=== PATIENT | male | born 1995 ===

== ENCOUNTER 2020-11-18 08:10 | Emergency (ER) | payer SELFPAY ==
[2020-11-18] MEDS ORDERED: LORazepam 2 MG/ML SDV IVPUSH ONE ×2 (08:26→12:12)
[2020-11-18] MEDS ORDERED: Thiamine 100 MG Tab PO ONE (08:27)
[2020-11-18] MEDS ORDERED: Sodium Chloride 0.9% 1,000 ML IV ONE (08:27)
[2020-11-18] MEDS ORDERED: Folic Acid 1 MG Tab PO ONE (08:28)
--- NOTE | 2020-11-18 08:33 | EDM.PDOC ---
ED HPI GENERAL MEDICAL PROBLEM - General Chief Complaint: Drug or Alcohol Abuse Stated Complaint: KEVIN,ETOH Time Seen by Provider: 11/18/20 08:33 Source of Information: Reports: Patient History Limitations: Reports: Altered Mental Status, Intoxication - History of Present Illness INITIAL COMMENTS - FREE TEXT/NARRATIVE: Edwar, 25-year-old male, presents being shaky. His home base is [place] making his way through the area. Was in a motel in [facility] where he awoke this morning feeling extremely shaky, acknowledging significant alcohol intake long-term but "a couple bottles a day" the past week. As he is not familiar with the area he presented to the desk at the motel and requested an ambulance. Had an incident of fall striking his head face, unsure as to what took place but does not think he was unconscious but is unsure. This did occur during any alcohol intake. Feels he is overall in good health other than this event and the issues leading up to it. He is uncertain as to what day it is knowing that he is in [place]. Planning to return to [place] as he was in [facility]. He stopped in [facility] a few days ago and unfortunately had a drink which led to more drinking than staying in a motel. He then realized he needed to get going and for what ever reason ended up in [facility] where he again stopped in a bar started drinking and was advised not to drive. He then spent the night in the motel there and awoke this morning questioning his health. Onset: Today Onset Date: 11/18/20 Onset Time: 07:30 Duration: Hour(s):, Getting Worse Location: Reports: Generalized Quality: Reports: Other (shakes) head Pain Score (Numeric/FACES): 5 - Related Data Allergies Allergy/AdvReac Type Severity Reaction Status Date / Time No Known Allergies Allergy Verified 11/18/20 08:54 Past Medical History HEENT History: Reports: None Cardiovascular History: Reports: None Respiratory History: Reports: None Gastrointestinal History: Reports: None Genitourinary History: Reports: None Musculoskeletal History: Reports: Fracture Neurological History: Reports: None Psychiatric History: Reports: Addiction Other Psychiatric History: Previous self admission into treatment facility for addiction, alcohol predominantly with THC Endocrine/Metabolic History: Reports: None Hematologic History: Reports: None Oncologic (Cancer) History: Reports: None Dermatologic History: Reports: None - Infectious Disease History Infectious Disease History: Reports: None - Past Surgical History Other Musculoskeletal Surgeries/Procedures:: Open reduction internal fixation right radius ulna Social & Family History - Family History Family Medical History: No Pertinent Family History ED ROS GENERAL - Review of Systems Review Of Systems: Comprehensive ROS is negative, except as noted in HPI. ED EXAM, GENERAL - Physical Exam Exam: See Below Free Text/Narrative:: Alert, oriented to surroundings but is unaware of his location which is understandable. Very strong odor of old alcohol to his body. HEENT is showing an abrasion to the right zygomatic arch and lateral with faint bruising there is dried blood in the right nare. PERRLA no icterus no injection he has mild nystagmus that I would attribute to his alcohol. There is no icterus no injection. There is no trapping to eye motion. Tenderness to the zygomatic arch is noted on the right. Neck is soft supple with no lymphadenopathy no rigidity no tenderness to the spinal process. There is no JVD, there is no bruit auscultated. Thorax is overall clear with no wheezes no crackles. Cardiac is S1 is 2 mildly tachycardic with no appreciated murmur nor ectopic beat. Abdomen is soft he has mild nausea but no tenderness to palpation. There is no flank pain There is no edema to the periphery with no tenderness to the extremities. Course - Vital Signs Last Recorded V/S: Last Vital Signs Temp 97.7 F 11/18/20 08:44 Pulse 102 H 11/18/20 08:44 Resp 14 11/18/20 08:44 BP 163/102 H 11/18/20 08:44 Pulse Ox 98 11/18/20 08:44 - Orders/Labs/Meds Labs: Laboratory Tests 11/18/20 11/18/20 11/18/20 Range/Units 08:45 08:45 08:45 WBC 7.24 (5.00-10.00) 10^3/uL RBC 4.74 (4.50-6.00) 10^6/uL Hgb 14.3 (13.0-17.0) g/dL Hct 43.0 (40.0-52.0) % MCV 90.7 (82.0-92.0) fL MCH 30.2 (27.0-31.0) pg MCHC 33.3 (32.0-36.0) g/dL RDW 14.1 (11.5-14.5) % Plt Count 236 (150-400) 10^3/uL MPV 9.6 (7.4-10.4) fL Immature Gran % (Auto) 0.7 (0.0-5.0) % Neut % (Auto) 54.7 (50.0-70.0) % Lymph % (Auto) 33.8 (20.0-40.0) % [place] % (Auto) 8.7 H (2.0-8.0) % Eos % (Auto) 1.8 (1.0-3.0) % Baso % (Auto) 0.3 (0.0-1.0) % Neut # (Auto) 3.96 (2.50-7.00) 10^3/uL Lymph # (Auto) 2.45 (1.00-4.00) 10^3/uL [place] # (Auto) 0.63 (0.10-0.80) 10^3/uL Eos # (Auto) 0.13 (0.10-0.30) 10^3/uL Baso # (Auto) 0.02 (0.00-0.10) 10^3/uL Immature Gran # (Auto) 0.05 (0.00-0.50) 10^3/uL APTT (22.8-31.4) SEC Sodium 137 (136-145) mmol/L Potassium 4.2 (3.5-5.1) mmol/L Chloride 99 (98-107) mmol/L Carbon Dioxide 28.8 (21.0-32.0) mmol/L Anion Gap 13.4 (5-15) mmol/L BUN 21 H (7-18) mg/dL Creatinine 0.80 (0.51-1.17) mg/dL Est Cr Clr Drug Dosing 143.21 mL/min Estimated GFR (MDRD) > 60 mL/min Glucose 94 (70-140) mg/dL Lactic Acid 1.9 (0.4-2.0) mmol/L Calcium 8.6 L (8.7-10.3) mg/dL Total Bilirubin 0.2 (0.2-1.0) mg/dL AST 35 (15-37) U/L ALT 99 H (14-63) U/L Alkaline Phosphatase 80 (46-116) U/L Total Protein 7.8 (6.4-8.2) g/dL Albumin 3.46 (3.40-5.00) g/dL Amylase (25-125) U/L Lipase (73-393) U/L Specimen Type Urine Color (YELLOW) Urine Appearance (CLEAR) Urine pH (5.0-9.0) Ur Specific [place] (1.005-1.030) Urine Protein (NEGATIVE) mg/dL Urine Glucose (UA) (NEGATIVE) mg/dL Urine Ketones (NEGATIVE) mg/dL Urine Occult Blood (NEGATIVE) Urine Nitrite (NEGATIVE) Urine Bilirubin (NEGATIVE) Urine Urobilinogen (0.2-1.0) E.U./dL Ur Leukocyte Esterase (NEGATIVE) Urine RBC (0-5) /HPF Urine WBC (0-5) /HPF Ur Epithelial Cells /LPF Amorphous Sediment (0/HPF) /HPF Urine Bacteria (NONE TO FEW) /HPF Urine Opiates Screen (NEGATIVE) Ur Oxycodone Screen (NEGATIVE) Urine Methadone Screen (NEGATIVE) Ur Propoxyphene Screen (NEGATIVE) Ur Barbiturates Screen (NEGATIVE) Ur Tricyclics Screen (NEGATIVE) Ur Phencyclidine Scrn (NEGATIVE) Ur Amphetamine Screen (NEGATIVE) U Methamphetamines Scrn (NEGATIVE) U Benzodiazepines Scrn (NEGATIVE) U Cocaine Metab Screen (NEGATIVE) U Marijuana (THC) Screen (NEGATIVE) Ethyl Alcohol 163 H* (NOT DETECTED) mg/dL 11/18/20 11/18/20 11/18/20 Range/Units 08:45 08:45 08:45 WBC (5.00-10.00) 10^3/uL RBC (4.50-6.00) 10^6/uL Hgb (13.0-17.0) g/dL Hct (40.0-52.0) % MCV (82.0-92.0) fL MCH (27.0-31.0) pg MCHC (32.0-36.0) g/dL RDW (11.5-14.5) % Plt Count (150-400) 10^3/uL MPV (7.4-10.4) fL Immature Gran % (Auto) (0.0-5.0) % Neut % (Auto) (50.0-70.0) % Lymph % (Auto) (20.0-40.0) % [place] % (Auto) (2.0-8.0) % Eos % (Auto) (1.0-3.0) % Baso % (Auto) (0.0-1.0) % Neut # (Auto) (2.50-7.00) 10^3/uL Lymph # (Auto) (1.00-4.00) 10^3/uL [place] # (Auto) (0.10-0.80) 10^3/uL Eos # (Auto) (0.10-0.30) 10^3/uL Baso # (Auto) (0.00-0.10) 10^3/uL Immature Gran # (Auto) (0.00-0.50) 10^3/uL APTT 25.0 (22.8-31.4) SEC Sodium (136-145) mmol/L Potassium (3.5-5.1) mmol/L Chloride (98-107) mmol/L Carbon Dioxide (21.0-32.0) mmol/L Anion Gap (5-15) mmol/L BUN (7-18) mg/dL Creatinine (0.51-1.17) mg/dL Est Cr Clr Drug Dosing mL/min Estimated GFR (MDRD) mL/min Glucose (70-140) mg/dL Lactic Acid (0.4-2.0) mmol/L Calcium (8.7-10.3) mg/dL Total Bilirubin (0.2-1.0) mg/dL AST (15-37) U/L ALT (14-63) U/L Alkaline Phosphatase (46-116) U/L Total Protein (6.4-8.2) g/dL Albumin (3.40-5.00) g/dL Amylase 63 (25-125) U/L Lipase 149 (73-393) U/L Specimen Type Urinmid Urine Color Yellow (YELLOW) Urine Appearance Clear (CLEAR) Urine pH 7.0 (5.0-9.0) Ur Specific [place] 1.020 (1.005-1.030) Urine Protein Negative (NEGATIVE) mg/dL Urine Glucose (UA) Negative (NEGATIVE) mg/dL Urine Ketones Negative (NEGATIVE) mg/dL Urine Occult Blood Negative (NEGATIVE) Urine Nitrite Negative (NEGATIVE) Urine Bilirubin Negative (NEGATIVE) Urine Urobilinogen 0.2 (0.2-1.0) E.U./dL Ur Leukocyte Esterase Negative (NEGATIVE) Urine RBC 0-5 (0-5) /HPF Urine WBC 0-5 (0-5) /HPF Ur Epithelial Cells Few /LPF Amorphous Sediment Few (0/HPF) /HPF Urine Bacteria Few (NONE TO FEW) /HPF Urine Opiates Screen (NEGATIVE) Ur Oxycodone Screen (NEGATIVE) Urine Methadone Screen (NEGATIVE) Ur Propoxyphene Screen (NEGATIVE) Ur Barbiturates Screen (NEGATIVE) Ur Tricyclics Screen (NEGATIVE) Ur Phencyclidine Scrn (NEGATIVE) Ur Amphetamine Screen (NEGATIVE) U Methamphetamines Scrn (NEGATIVE) U Benzodiazepines Scrn (NEGATIVE) U Cocaine Metab Screen (NEGATIVE) U Marijuana (THC) Screen (NEGATIVE) Ethyl Alcohol (NOT DETECTED) mg/dL 11/18/20 Range/Units 08:45 WBC (5.00-10.00) 10^3/uL RBC (4.50-6.00) 10^6/uL Hgb (13.0-17.0) g/dL Hct (40.0-52.0) % MCV (82.0-92.0) fL MCH (27.0-31.0) pg MCHC (32.0-36.0) g/dL RDW (11.5-14.5) % Plt Count (150-400) 10^3/uL MPV (7.4-10.4) fL Immature Gran % (Auto) (0.0-5.0) % Neut % (Auto) (50.0-70.0) % Lymph % (Auto) (20.0-40.0) % [place] % (Auto) (2.0-8.0) % Eos % (Auto) (1.0-3.0) % Baso % (Auto) (0.0-1.0) % Neut # (Auto) (2.50-7.00) 10^3/uL Lymph # (Auto) (1.00-4.00) 10^3/uL [place] # (Auto) (0.10-0.80) 10^3/uL Eos # (Auto) (0.10-0.30) 10^3/uL Baso # (Auto) (0.00-0.10) 10^3/uL Immature Gran # (Auto) (0.00-0.50) 10^3/uL APTT (22.8-31.4) SEC Sodium (136-145) mmol/L Potassium (3.5-5.1) mmol/L Chloride (98-107) mmol/L Carbon Dioxide (21.0-32.0) mmol/L Anion Gap (5-15) mmol/L BUN (7-18) mg/dL Creatinine (0.51-1.17) mg/dL Est Cr Clr Drug Dosing mL/min Estimated GFR (MDRD) mL/min Glucose (70-140) mg/dL Lactic Acid (0.4-2.0) mmol/L Calcium (8.7-10.3) mg/dL Total Bilirubin (0.2-1.0) mg/dL AST (15-37) U/L ALT (14-63) U/L Alkaline Phosphatase (46-116) U/L Total Protein (6.4-8.2) g/dL Albumin (3.40-5.00) g/dL Amylase (25-125) U/L Lipase (73-393) U/L Specimen Type Urine Color (YELLOW) Urine Appearance (CLEAR) Urine pH (5.0-9.0) Ur Specific [place] (1.005-1.030) Urine Protein (NEGATIVE) mg/dL Urine Glucose (UA) (NEGATIVE) mg/dL Urine Ketones (NEGATIVE) mg/dL Urine Occult Blood (NEGATIVE) Urine Nitrite (NEGATIVE) Urine Bilirubin (NEGATIVE) Urine Urobilinogen (0.2-1.0) E.U./dL Ur Leukocyte Esterase (NEGATIVE) Urine RBC (0-5) /HPF Urine WBC (0-5) /HPF Ur Epithelial Cells /LPF Amorphous Sediment (0/HPF) /HPF Urine Bacteria (NONE TO FEW) /HPF Urine Opiates Screen Negative (NEGATIVE) Ur Oxycodone Screen Negative (NEGATIVE) Urine Methadone Screen Negative (NEGATIVE) Ur Propoxyphene Screen Negative (NEGATIVE) Ur Barbiturates Screen Positive H (NEGATIVE) Ur Tricyclics Screen Negative (NEGATIVE) Ur Phencyclidine Scrn Negative (NEGATIVE) Ur Amphetamine Screen Negative (NEGATIVE) U Methamphetamines Scrn Negative (NEGATIVE) U Benzodiazepines Scrn Positive H (NEGATIVE) U Cocaine Metab Screen Negative (NEGATIVE) U Marijuana (THC) Screen Positive H (NEGATIVE) Ethyl Alcohol (NOT DETECTED) mg/dL Meds: Medications Discontinued Medications Generic Name Dose Route Start Last Admin Trade Name Rodolfo PRN Reason Stop Dose Admin Folic Acid 1 mg 11/18/20 08:28 11/18/20 08:55 Folic Acid PO 11/18/20 08:29 1 mg ONETIME ONE Administration Sodium Chloride 1,000 mls @ 999 mls/hr 11/18/20 08:27 11/18/20 09:25 Normal Saline IV 11/18/20 09:27 999 mls/hr .BOLUS ONE Administration Lorazepam 1 mg 11/18/20 08:26 11/18/20 09:24 Ativan IVPUSH 11/18/20 08:27 1 mg ONETIME ONE Administration Ondansetron HCl 8 mg 11/18/20 09:04 11/18/20 09:24 Zofran IVPUSH 11/18/20 09:05 8 mg ONETIME ONE Administration Ondansetron HCl 8 mg 11/18/20 11:10 11/18/20 11:48 Zofran IVPUSH 11/18/20 11:11 8 mg ONETIME ONE Administration Thiamine HCl 50 mg 11/18/20 08:27 11/18/20 08:55 Vitamin B-1 PO 11/18/20 08:28 50 mg ONETIME ONE Administration - Re-Assessments/Exams Free Text/Narrative Re-Assessment/Exam: 11/18/20 12:00 Discussed with Carlota the aspects of all lab work other than his ALT returning normal and his options are discussed. He is offered that I would contact a sobriety detox center which he declines stating he thinks he is in good enough condition that he will be able to maintain sobriety to get himself home. I state that he is not legal to drive at this time and needs to return to [place] where his vehicle and belongings are. He states that someone from the hotel and/or ambulance service would pick him up to bring him back to his vehicle. His nausea has recurred slightly and will be given another dose of Zofran along with a milligram of lorazepam for his associated tremors. Lengthy discussion that he cannot be going into DTs at this time with an alcohol level of 160 although the agitation and withdrawal factor of both the cannabis/THC and his alcohol combined. There is no reasoning for barbiturate positivity on the urine other than if it is a cross sensitivity issue or if somehow something was slipped into his system over the course of the past week during this 8-day binge. He requests discharge so he will be able to make his way home to [place]. Departure - Departure Time of Disposition: 12:07 Disposition: Home, Self-Care 01 Condition: Fair Clinical Impression: Alcohol abuse, Drug dependence, Alcohol intoxication, Alcohol dependence, binge pattern, Tetrahydrocannabinol (THC) use disorder, mild, abuse, Elevated liver transaminase level - Discharge Information *PRESCRIPTION DRUG MONITORING PROGRAM REVIEWED*: Not Applicable *COPY OF PRESCRIPTION DRUG MONITORING REPORT IN PATIENT MATY: Not Applicable Instructions: Cannabinoid Hyperemesis Syndrome, Finding Treatment for Addiction, Binge-Drinking Information, Adult Referrals: Maryjo Luong MD [Primary Care Provider] - Forms: ED Department Discharge Additional Instructions: You need to avoid alcohol to reach her sobriety levels were you able to continue your trip home. The risk factor for delirium tremens starts usually at 24 hours after sobriety. Today your mild agitation is a combination of alcohol and THC components. Slight elevation in your liver enzymes need to be reassessed when you reach your destination in [place]. You are not legal to drive at this time secondary of your alcohol level, as well has the lorazepam/Ativan you have been given. You will be given one 1 mg lorazepam tablet to be taken if tremors or agitation occur while you were in route home. You may take one half of this tablet 6 hours apart for agitation. It is very important that you are dedicated yourself to sobriety or significant reduction so you are able to reach her destination, or consider contacting rail service, bust service, or airline service to fly you home if you are not able to maintain sobriety as you are a legal risk to yourself and anyone else on the roadway. Sepsis Event Note (ED) - Focused Exam Vital Signs: Vital Signs Temp Pulse Resp BP Pulse Ox 11/18/20 08:44 97.7 F 102 H 14 163/102 H 98 - Problem List & Annotations (1) Alcohol intoxication SNOMED Code(s): 34525716 Code(s): F10.929 - ALCOHOL USE, UNSPECIFIED WITH INTOXICATION, UNSPECIFIED Status: Chronic Priority: High Current Visit: Yes Qualifiers: Complication of substance-induced condition: uncomplicated Qualified Code(s): F10.920 - Alcohol use, unspecified with intoxication, uncomplicated (2) Alcohol dependence, binge pattern SNOMED Code(s): 773064461 Code(s): F10.20 - ALCOHOL DEPENDENCE, UNCOMPLICATED Status: Chronic Priority: High Current Visit: Yes (3) Tetrahydrocannabinol (THC) use disorder, mild, abuse SNOMED Code(s): 91507819, 26559851 Code(s): F12.10 - CANNABIS ABUSE, UNCOMPLICATED Status: Chronic Priority: High Current Visit: Yes (4) Elevated liver transaminase level SNOMED Code(s): 999667454 Code(s): R74.01 - ELEVATION OF LEVELS OF LIVER TRANSAMINASE LEVELS Status: Acute Priority: Medium Current Visit: Yes (5) Cannabinoid hyperemesis syndrome SNOMED Code(s): 542822972 Code(s): R11.2 - NAUSEA WITH VOMITING, UNSPECIFIED; F12.90 - CANNABIS USE, UNSPECIFIED, UNCOMPLICATED Status: Acute Current Visit: Yes (6) Alcohol abuse SNOMED Code(s): 27575585 Code(s): F10.10 - ALCOHOL ABUSE, UNCOMPLICATED Status: Acute Current Visit: Yes (7) Drug dependence SNOMED Code(s): 139974817 Code(s): F19.20 - OTHER PSYCHOACTIVE SUBSTANCE DEPENDENCE, UNCOMPLICATED Status: Acute Current Visit: Yes - Problem List Review Problem List Initiated/Reviewed/Updated: Yes - Assessment/Plan Plan: You need to avoid alcohol to reach her sobriety levels were you able to continue your trip home. The risk factor for delirium tremens starts usually at 24 hours after sobriety. Today your mild agitation is a combination of alcohol and THC components. Slight elevation in your liver enzymes need to be reassessed when you reach your destination in [place]. You are not legal to drive at this time secondary of your alcohol level, as well has the lorazepam/Ativan you have been given. You will be given one 1 mg lorazepam tablet to be taken if tremors or agitation occur while you were in route home. You may take one half of this tablet 6 hours apart for agitation. It is very important that you are dedicated yourself to sobriety or significant reduction so you are able to reach her destination, or consider contacting rail service, bust service, or airline service to fly you home if you are not able to maintain sobriety as you are a legal risk to yourself and anyone else on the [place].
[2020-11-18] MEDS ORDERED: Ondansetron 4 MG/2 ML SDV IVPUSH ONE ×2 (09:04→11:10)
[2020-11-18 09:28] LABS: ANION GAP 13.4 mmol/L (5-15); CHLORIDE,CL 99 mmol/L (98-107); SODIUM,NA 137 mmol/L (136-145)
[2020-11-18 09:40] LABS: BARBITURATE SCREEN,URINE POSITIVE (NEGATIVE); BENZODIAZEPINES SCREEN,URINE POSITIVE (NEGATIVE); THC SCREEN,URINE 50 NG/ML POSITIVE (NEGATIVE)
[2020-11-18 09:41] LABS: TCA SCREEN,URINE NEGATIVE (NEGATIVE)
--- NOTE | 2020-11-18 10:13 | CT ---
[id number] CT/CT Head WO IV EXAM: CT Head WO IV CLINICAL DATA: FALL, INTOXICATION. COMPARISON STUDY: None FINDINGS: No intracranial hemorrhage, extra-axial fluid collection, mass, or acute ischemia. Soft tissues are unremarkable. Paranasal sinuses and mastoid air cells are clear. IMPRESSION: No acute intracranial findings. Yonatan Gallegos DO 11/18/20 1012 Thank you for allowing us to participate in the care of your patient.
--- NOTE | 2020-11-18 10:16 | CT ---
[id number] CT/CT Facial Bones WO IV EXAM: CT FACIAL BONES. INDICATION: FALL, FACIAL PAIN. COMPARISON: None. DISCUSSION: No facial bone fracture or suspicious osseous lesion identified. The paranasal sinuses are normally aerated. The orbits and facial soft tissues are unremarkable. IMPRESSION: 1. No evidence of acute facial bone fractures. Yonatan Gallegos DO 11/18/20 1015 Thank you for allowing us to participate in the care of your patient.
[2020-11-18] MEDS ORDERED: LORazepam 0.5 MG Tab PO ONE (12:13)
== END 2020-11-18 13:30 | disposition home or self-care (01) ==
LOC: KA.ED 08:10
DX: F10.229 Alcohol dependence with intoxication, unspecified (principal); F12.19 Cannabis abuse with unspecified cannabis-induced disorder; S00.83XA Contusion of other part of head, initial encounter; R74.01 Elevation of levels of liver transaminase levels; F50.81 Binge eating disorder; Y90.6 Blood alcohol level of 120-199 mg/100 ml; Z72.0 Tobacco use; W22.8XXA Striking against or struck by other objects, initial encounter
CPT/HCPCS: 36415; 70450; 70486; 80053; 80305-QW; 80307; 81001; 82150; 83605; 83690; 85025; 85730; 96374; 96375; 96376; 99284; 99284-25; A9270-GY; J2060; J2405; J7030